=== PATIENT | female | born 1945 | race Hispanic/Latino ===

== ENCOUNTER 2018-12-14 14:27 | Outpatient (CLI) | payer MEDICARE ==
--- NOTE | 2018-12-14 15:39 | XRay Report ---
XRAY CHEST TWO VIEWS: 12/14/18 14:27:00 CLINICAL: Cough. COMPARISON: None FINDINGS: Normal heart and pulmonary vasculature. 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 Moderate aortic calcification. No pleural effusion. Mild degenerative changes in the spine. IMPRESSION: No acute cardiopulmonary process.
== END 2018-12-14 14:28 | disposition home or self-care (01) ==
LOC: SPVIMAG 14:27
PROVIDERS: ATTEND Internal Medicine
DX: J40 Bronchitis, not specified as acute or chronic (principal)
CPT/HCPCS: 71046

== ENCOUNTER 2019-05-03 09:07 | Outpatient (CLI) | payer MEDICARE | END 2019-05-03 09:08 | disposition home or self-care (01) | LOC: EEG 09:07 | DX: G45.4 Transient global amnesia (principal); G45.9 Transient cerebral ischemic attack, unspecified | CPT/HCPCS: 95819 ==

== ENCOUNTER 2022-01-16 13:33 | Outpatient (CLI) | payer MEDICARE ==
--- NOTE | 2022-01-16 17:53 | Ultrasound Report ---
ULTRASOUND RENAL INDICATION / CLINICAL INFORMATION: N18.32 CHRONIC KIDNEY DISEASE. COMPARISON: None available. FINDINGS: RIGHT KIDNEY: Length = 10.4 cm. - Echogenicity: Increased. - Parenchymal Thickness: Moderate thinning. - Hydronephrosis: None. - Cyst / Mass: None. - Stones: None seen. LEFT KIDNEY: Length = 10.1 cm. - Echogenicity: Increased. - Parenchymal Thickness: Mild thinning. - Hydronephrosis: None. - Cyst / Mass: None. - Stones: None seen. URINARY BLADDER: No significant abnormality. FREE FLUID: None. ADDITIONAL FINDINGS: None. IMPRESSION: 1. Findings suggestive of chronic medical renal disease bilaterally. 2. No evidence of renal mass or hydronephrosis. Scribed by: Isamar Garcia RDMS, ANITA, ANH Scribed: 01/16/2022 2:42 PM I have reviewed the images, agree with this report, and edited this report as needed. Signer Name: Geovany Hastings MD Signed: 01/16/2022 5:49 PM Workstation Name: [id number]
== END 2022-01-16 13:34 | disposition home or self-care (01) ==
LOC: US 13:33
PROVIDERS: ATTEND Internal Medicine Nephrology
DX: I12.9 Hypertensive chronic kidney disease with stage 1 through stage 4 chronic kidney disease, or unspecified chronic kidney disease (principal); N18.32 Chronic kidney disease, stage 3b; M10.9 Gout, unspecified; E87.2 Acidosis; D64.9 Anemia, unspecified; R73.01 Impaired fasting glucose; E66.9 Obesity, unspecified
CPT/HCPCS: 76770